=== PATIENT | female | born 1985 | race African-American/Black ===

== ENCOUNTER 2018-11-11 21:09 | Emergency (ER) ==
[2018-11-11 21:25] VITALS: BP 123/71; TEMP 98.9; BMI 25.0
--- NOTE | 2018-11-11 21:49 | ED.PDOC ---
General ED Provider: Dr. DIANA BECKETT-ER Chief Complaint: Knee Pain/Injury Stated Complaint: my knee is giving me trouble Time Seen by Physician: 21:15 Mode of Arrival: Walk-In Information Source: Patient Exam Limitations: No limitations Nursing and Triage Documentation Reviewed and Agree: Yes Does patient meet sepsis criteria?: No System Inflammatory Response Syndrome: Not Applicable Sepsis Protocol: For patient's 13 years and over: Temp is 96.8 and below OR 101 and greater Pulse >90 BPM Resp >20/minute Acutely Altered Mental Status Are patient's symptoms suggestive of a new infection, such as: -Pneumonia -Skin, Soft Tissue -Endocarditis -UTI -Bone, Joint Infection -Implantable Device -Acute Abdominal Infection -Wound Infection -Meningitis -Blood Stream Catheter Infection -Unknown Musculoskeletal Complaint Exam - Knee Pain Complaint/Exam Mechanism of Injury: Reports: No known trauma Onset/Duration: 2 weeks Symptoms Are: Still present Onset of Pain: Reports: Immediate Initial Severity: Mild Current Severity: Mild Location: Reports: Discrete Character: Reports: Dull, Aching, Spasmodic, Stiffness Aggravating: Reports: Movement, Weight bearing, Prolonged standing Associated Signs and Symptoms: Denies: Swelling, Redness, Bruising, Fever, Weakness, Numbness, Tingling Able to Bear Weight: Yes Related History: Reports: Similar episode Knee Findings: Present: Swelling, Tenderness, Limited range of motion Charlie Test Positive: No Magan Test Positive: No Limited Range of Motion: Present: Active, Passive Differential Diagnoses: Internal Derangement, Sprain, Strain Review of Systems - Review Of Systems Constitutional: Reports: No symptoms Eyes: Reports: No symptoms Ears, Nose, Mouth, Throat: Reports: No symptoms Respiratory: Reports: No symptoms Cardiac: Reports: No symptoms GI: Reports: No symptoms : Reports: No symptoms Musculoskeletal: Reports: Joint pain, Muscle pain Skin: Reports: No symptoms Neurological: Reports: No symptoms Endocrine: Reports: No symptoms Hematologic/Lymphatic: Reports: No symptoms All Other Systems: Reviewed and Negative Past Medical History - Past Medical History Previously Healthy: Yes Endocrine: Reports: Unknown Cardiovascular: Reports: Unknown Respiratory: Reports: Unknown Hematological: Reports: Unknown Gastrointestinal: Reports: Unknown Genitourinary: Reports: Unknown Neuro/Psych: Reports: Unknown Musculoskeletal: Reports: Unknown Cancer: Reports: Unknown Last Menstrual Period: 2 WEEKS AGO - Surgical History General Surgical History: Reports: Unknown - Family History Family History: Reports: Unknown - Social History Smoking Status: Current every day smoker, Light tobacco smoker Hx Substance Use: No Alcohol Screening: Occasionally - Immunizations Tetanus Shot up to Date: Yes Physical Exam - Physical Exam Appearance: Well-appearing, No pain distress, Well-nourished Pain Distress: Mild Eyes: KAREN, EOMI, Conjunctiva clear ENT: Ears normal, Nose normal, Oropharynx normal Neck: Supple Respiratory: Airway patent, Breath sounds clear, Breath sounds equal, Respirations nonlabored Cardiovascular: RRR, Pulses normal, No rub, No murmur GI/: Soft Musculoskeletal: Limited ROM Skin: Warm, Dry, Normal color Neurological: Sensation intact, Motor intact, Reflexes intact, Cranial nerves intact, Alert, Oriented Psychiatric: Affect appropriate Interpretation - Radiology Interpretation Radiology Interpretation By: ED Physician Radiology Results: Negative Procedures - Splinting Location: right knee Pre-Made Type: Knee immobilizer Pre-Proc Neuro Vasc Exam: Normal Post-Proc Neuro Vasc Exam: Normal Critical Care Note - Critical Care Note Total Time (mins): 0 Course - Course Orders, Labs, Meds: Orders Category Date Time Status CRUTCHES [ED CRUTCHES] .ONCE EMERGENCY 11/11/18 21:46 Active Knee immobilizer [ED SPLINT APPLICATION] .ONCE EMERGENCY 11/11/18 21:46 Active KNEE, RIGHT 4 VIEWS Stat RADS 11/11/18 21:26 Taken Vital Signs: Temp Pulse Resp BP Pulse Ox 11/11/18 21:10 98.9 F 69 20 123/71 96 Departure - Departure Time of Disposition: 21:49 Disposition: HOME SELF-CARE Discharge Problem: Injury of knee Instructions: Knee Pain (ED) Condition: Good Pt referred to PMD for follow-up: Yes IPMP verified?: No Additional Instructions: f/u with local md--consider mri of the knee or referral to orthopedics Allergies/Adverse Reactions: Allergies No Known Drug Allergies Adverse Reaction (Verified 11/11/18 21:26) Home Medications: Ambulatory Orders 1 [No Reported Medications] 11/11/18 Disposition Discussed With: Patient, Family
--- NOTE | 2018-11-11 22:03 | DI ---
Exam: Four views of the right knee. Comparison: None available. Reason for exam: Knee pain. FINDINGS: No acute fracture or malalignment. The joint spaces appear well maintained. No unexplain ed calcific soft tissue density or radiopaque retained foreign body. There is a joint effusion seen on the lateral view. Impression: No acute fracture or dislocation in the right knee.
== END 2018-11-11 21:55 | disposition home or self-care (01) ==
LOC: ED 21:09
DX: M25.561 Pain in right knee (principal); F17.210 Nicotine dependence, cigarettes, uncomplicated
CPT/HCPCS: 99282